=== PATIENT | male | born 1950 | race Caucasian/White ===

== ENCOUNTER 2019-11-25 06:52 | Day surgery (SDC) | payer MEDICARE, BC ==
[~2019-11-25 06:52] MED LIST: Lactated Ringers 1,000 ML IV SCH; Sodium Chloride 0.9% 10 ML SDV IV PRN; Sodium Chloride 0.9% 10 ML Syringe FLUSH PRN; Sodium Chloride 0.9% 2.5 ML Syringe FLUSH PRN
[2019-11-25] MEDS ORDERED: fentaNYL 100 MCG/2 ML SDV ONE (07:12)
[2019-11-25] MEDS ORDERED: Propofol 200 MG/20 ML SDV ONE ×2 (07:12→07:51)
[2019-11-25] MEDS ORDERED: Lidocaine 2% 5 ML SDV ONE (07:12)
--- NOTE | 2019-11-25 07:13 | PCM.PREANE ---
Preanesthetic Assessment - Anesthesia/Transfusion/Family Hx Anesthesia History: Prior Anesthesia Without Reaction Family History of Anesthesia Reaction: No Transfusion History: No Prior Transfusion(s) - Review of Systems General: No Symptoms Pulmonary: No Symptoms Cardiovascular: No Symptoms Neurological: No Symptoms Other: Reports: None - Physical Assessment NPO Status Date: 11/24/19 Vital Signs: Last Vital Signs Temp 96.4 F L 11/25/19 07:05 Pulse 55 L 11/25/19 07:05 Resp 15 11/25/19 07:05 BP 130/77 11/25/19 07:05 Pulse Ox 95 11/25/19 07:05 Height: 6 ft 2 in Weight: 130.635 kg ASA Class: 3 Mental Status: Alert & Oriented x3 Airway Class: Mallampati = 2 Dentition: Reports: Normal Dentition ROM/Head Extension: Full Lungs: Clear to Auscultation, Normal Respiratory Effort Cardiovascular: Regular Rate, Regular Rhythm - Allergies Allergies/Adverse Reactions: Allergies Allergy/AdvReac Type Severity Reaction Status Date / Time No Known Allergies Allergy Verified 11/19/19 11:06 - Acknowledgements Anesthesia Type Planned: General Anesthesia (tiva) Pt an Appropriate Candidate for the Planned Anesthesia: Yes Alternatives and Risks of Anesthesia Discussed w Pt/Guardian: Yes Pt/Guardian Understands and Agrees with Anesthesia Plan: Yes Additional Comments: pmh: cad with coronary stent in 2004, stopped aspirin yesterday, htn, gerd PreAnesthesia Questionnaire HEENT History: Reports: Hard of Hearing, Other (See Below) Other HEENT History: wears glasses, has bilateral hearing aides Cardiovascular History: Reports: CAD, High Cholesterol Respiratory History: Reports: None Gastrointestinal History: Reports: Other (See Below) Other Gastrointestinal History: occasional heartburn- no medications Genitourinary History: Reports: None Musculoskeletal History: Reports: Back Pain, Chronic, Fracture, Osteoarthritis Other Musculoskeletal History: hx of fx ankle, wrist, and leg Neurological History: Reports: Concussion Psychiatric History: Reports: Depression Endocrine/Metabolic History: Reports: Obesity/BMI 30+ Hematologic History: Reports: None Immunologic History: Reports: None Oncologic (Cancer) History: Reports: None Dermatologic History: Reports: None - Past Surgical History Head Surgeries/Procedures: Reports: None Cardiovascular Surgical History: Reports: Coronary Artery Stent Other Cardiovascular Surgeries/Procedures: Angioplasty with 1 stent placed (because of SOB) no symptoms since Endocrine Surgical History: Reports: Other (See Below) Other Endocrine Surgeries/Procedures: Partial Thyroidectomy- benign Musculoskeletal Surgical History: Reports: Arthroscopic Knee, ORIF, Shoulder Replacement Other Musculoskeletal Surgeries/Procedures:: hx of right TSA, ORIF right lower leg (has hardware), ORIF wrist and ankle (hardware removed) - SUBSTANCE USE Smoking Status *Q: Never Smoker Recreational Drug Use History: No - HOME MEDS Home Medications: Home Meds Ramipril 10 mg PO BID 12/25/15 [History] Rosuvastatin [Crestor] 10 mg PO DAILY 12/25/15 [History] carvediloL [Carvedilol] 6.25 mg PO QAM 12/25/15 [History] Aspirin [Adult Low Dose Aspirin EC] 81 mg PO DAILY 11/19/19 [History] Ezetimibe [Zetia] 10 mg PO DAILY 11/19/19 [History] buPROPion HCL [Bupropion Xl] 300 mg PO DAILY 11/19/19 [History] - CURRENT (IN HOUSE) MEDS Current Meds: Current Medications Lactated Ringer's (Ringers, Lactated) 1,000 mls @ 125 mls/hr IV ASDIRECTED SINCERE Sodium Chloride (Saline Flush) 10 ml FLUSH ASDIRECTED PRN PRN Reason: Keep Vein Open Sodium Chloride (Saline Flush) 2.5 ml FLUSH ASDIRECTED PRN PRN Reason: Keep Vein Open Sodium Chloride (Saline Flush) 10 ml FLUSH ASDIRECTED PRN PRN Reason: Keep Vein Open Sodium Chloride (Saline Flush) 2.5 ml FLUSH ASDIRECTED PRN PRN Reason: Keep Vein Open Sodium Chloride (Normal Saline) 10 ml IV ASDIRECTED PRN PRN Reason: IV Use
[2019-11-25] MEDS ORDERED: Glycopyrrolate 0.2 MG/ML SDV ONE (07:41)
--- NOTE | 2019-11-25 08:34 | PCM.POSTAN ---
POST ANESTHESIA ASSESSMENT - MENTAL STATUS Mental Status: Alert, Oriented - VITAL SIGNS Vital Signs: Last Vital Signs Temp 35.8 C L 11/25/19 07:05 Pulse 55 L 11/25/19 07:05 Resp 15 11/25/19 07:05 BP 130/77 11/25/19 07:05 Pulse Ox 95 11/25/19 07:05 - RESPIRATORY Respiratory Status: Respiratory Rate WNL, Airway Patent, O2 Saturation Stable - CARDIOVASCULAR CV Status: Pulse Rate WNL, Blood Pressure Stable - GASTROINTESTINAL GI Status: No Symptoms - POST OP HYDRATION Hydration Status: Adequate & Stable
--- NOTE | 2019-11-25 08:56 | PCM.OPNOTE ---
- General Post-Op/Procedure Note Date of Surgery/Procedure: 11/25/19 Operative Procedure(s): Colonoscopy with random biopsies Findings: scant diverticulosis. dictation number [id number] Pre Op Diagnosis: Increased loose stools Post-Op Diagnosis: scant diverticulosis Anesthesia Technique: Moderate Sedation Primary Surgeon: Edd Diggs Pathology: Random biopsies Complications: None Condition: Good Free Text/Narrative:: Intake & Output 11/24/19 11/25/19 11/25/19 22:59 06:59 14:59 Intake Total 750 Balance 750
--- NOTE | 2019-11-25 09:18 | PCM48HPAN ---
Post Anesthesia Note - EVALUATION WITHIN 48HRS OF ANESTHETIC Vital Signs in Normal Range: Yes Patient Participated in Evaluation: Yes Respiratory Function Stable: Yes Airway Patent: Yes Cardiovascular Function Stable: Yes Hydration Status Stable: Yes Pain Control Satisfactory: Yes Nausea and Vomiting Control Satisfactory: Yes Mental Status Recovered: Yes Vital Signs: Last Vital Signs Temp 96.4 F L 11/25/19 07:05 Pulse 64 11/25/19 08:35 Resp 15 11/25/19 08:35 BP 122/76 11/25/19 08:35 Pulse Ox 93 L 11/25/19 08:35
[2019-11-25 09:28] VITALS: BP 144/73; PULSE 56
--- NOTE | 2019-11-25 10:12 | PCM48HPAN ---
Post Anesthesia Note - EVALUATION WITHIN 48HRS OF ANESTHETIC Vital Signs in Normal Range: Yes Patient Participated in Evaluation: Yes Respiratory Function Stable: Yes Airway Patent: Yes Cardiovascular Function Stable: Yes Hydration Status Stable: Yes Pain Control Satisfactory: Yes Nausea and Vomiting Control Satisfactory: Yes Mental Status Recovered: Yes Vital Signs: Last Vital Signs Temp 96.4 F L 11/25/19 07:05 Pulse 56 L 11/25/19 08:40 Resp 15 11/25/19 08:40 BP 144/73 H 11/25/19 08:40 Pulse Ox 96 11/25/19 08:40
--- NOTE | 2019-11-25 15:01 | OR ---
SURGEON: SANDRA ABEL MD DATE OF PROCEDURE: 11/25/2019 PREOPERATIVE DIAGNOSIS: Increasing loose stool. POSTOPERATIVE DIAGNOSIS: Scant diverticulosis. PROCEDURE PERFORMED: Colonoscopy with random biopsies. PRIMARY SURGEON: Sandra Abel MD ANESTHESIA: General. EXTENT OF COLONOSCOPY: To the cecum. WITHDRAWAL TIME: 16 minutes. LIMITATIONS: None. BOWEL PREP: Very Good. REASON FOR PROCEDURE: The patient is a pleasant 69-year-old gentleman who is having increasing loose stools along with a lot of flatus. The patient reports he is having more flatus, but he cannot tell whether he is having a bowel movement or flatus. It is affecting his quality of life since he is a ambrocio. I did go over with the patient we will do a colonoscopy. I went over that we may not find a cause of this increased flatus and loose stools. The patient understands. PROCEDURE IN DETAIL: Physical examination was performed. The major risks and benefits associated with the procedure were explained to the patient in detail. The patient verbalized understanding of the same. The patient was then connected to appropriate monitoring devices. EKG, pulse, pulse oximetry, blood pressure, and capnography were monitoring throughout the procedure. Continuous oxygen and sedation were provided by the anesthesiologist. The patient was placed in left lateral decubitus position. Sedation was began. After adequate sedation was achieved, a digital rectal exam was performed. No rectal masses or polyps were felt. Now, a well-lubricated Olympus colonoscope was entered in the rectum and advanced under direct visualization to the level of the cecum. Cecum was identified by both visual and anatomic landmarks. Photograph was taken of the cecal cap. Scope was then slowly withdrawn in somewhat circular fashion looking at the color, texture, anatomy, and integrity of the mucosa from the cecum to the anal canal. The patient had an okay bowel prep. Still quite a bit of liquid stool left, but with some suction and irrigation, actually got a very good look at the mucosa. I did do random biopsies throughout the colon to check for any microscopic colitis. The patient had very scant diverticulosis in the sigmoid colon. In the rectum, the mucosa looked slightly more irritated. This could be because of the prep, but I did send these random biopsies in a separate container. Scope was retroflexed in the rectum. Scope was then completely removed, and the procedure was terminated. ENDOSCOPIC DIAGNOSIS: Scant diverticulosis. RECOMMENDATIONS: Followup colonoscopy will depend on pathology, but most likely another one in 10 years. He will need one sooner if he develops signs or symptoms such as blood in the stool, or changing bowel habits. The patient should follow up in my clinic to discuss his pathology results. MIKAEL SANTANA /[id number] MTDD
== END 2019-11-25 09:20 | disposition home or self-care (01) ==
LOC: MW.SDS 06:52
PROVIDERS: ATTEND Surgery
DX: K57.30 Diverticulosis of large intestine without perforation or abscess without bleeding (principal); E78.00 Pure hypercholesterolemia, unspecified; E66.9 Obesity, unspecified; I25.10 Atherosclerotic heart disease of native coronary artery without angina pectoris; F32.9 Major depressive disorder, single episode, unspecified; I10 Essential (primary) hypertension; E78.5 Hyperlipidemia, unspecified; Z79.82 Long term (current) use of aspirin; Z79.899 Other long term (current) drug therapy; Z68.36 Body mass index [BMI] 36.0-36.9, adult
CPT/HCPCS: 45380; 88305; J2001; J2704; J3010; J3490; J7120; 00811

== ENCOUNTER 2022-02-22 09:07 | Day surgery (SDC) | payer MEDICARE, BC ==
[~2022-02-22 09:07] MED LIST changes: +Acetaminophen 1,000 MG in Premix Bag 1 BAG IV SCH; +Pregabalin 75 MG Cap PO SCH; -Sodium Chloride 0.9% 10 ML SDV IV PRN; -Sodium Chloride 0.9% 10 ML Syringe FLUSH PRN; -Sodium Chloride 0.9% 2.5 ML Syringe FLUSH PRN; +ceFAZolin 2 GM in Premix Bag 1 BAG IV SCH
[2022-02-22] MEDS ORDERED: Rocuronium Bromide 50 MG/5 ML Syringe ONE ×2 (09:20→11:33)
[2022-02-22] MEDS ORDERED: Lidocaine 2% 5 ML SDV ONE (09:20)
[2022-02-22] MEDS ORDERED: Ondansetron 4 MG/2 ML SDV ONE (09:20)
[2022-02-22] MEDS ORDERED: fentaNYL 100 MCG/2 ML SDV ONE ×2 (09:20→13:09)
[2022-02-22] MEDS ORDERED: Dexamethasone 4 MG/ML 5 ML MDV ONE (09:20)
[2022-02-22] MEDS ORDERED: Propofol 200 MG/20 ML SDV ONE ×2 (09:20→13:10)
[2022-02-22] MEDS ORDERED: Sugammadex Sodium 200 MG/2 ML VIAL ONE ×2 (09:20→12:57)
[2022-02-22] MEDS ORDERED: Ondansetron 4 MG/2 ML SDV IVPUSH PRN (09:22)
[2022-02-22] MEDS ORDERED: Albuterol 0.083% 2.5 MG/3 ML Neb Soln NEB PRN (09:22)
[2022-02-22] MEDS ORDERED: Metoclopramide 10 MG/2 ML SDV IVPUSH PRN (09:22)
[2022-02-22] MEDS ORDERED: Naloxone 0.4 MG/ML SDV IVPUSH PRN (09:22)
[2022-02-22] MEDS ORDERED: fentaNYL 50 MCG/ML SDV IVPUSH PRN (09:22)
[2022-02-22] MEDS ORDERED: Morphine 2 MG/ML SYRINGE IVPUSH PRN (09:22)
[2022-02-22] MEDS ORDERED: HYDROmorphone 1 MG/ML Syringe IVPUSH PRN (09:22)
[2022-02-22] MEDS ORDERED: Ropivacaine 0.5% 5 MG/ML 30 ML SDV ONE ×2 (09:59→10:11)
[2022-02-22] MEDS ORDERED: Bupivacaine 0.5% 30 ML SDV ONE (10:17)
[2022-02-22] MEDS ORDERED: Water For Injection, Sterile 20 ML ONE (10:57)
[2022-02-22] MEDS ORDERED: ceFAZolin 2 GM Vial ONE (10:57)
[2022-02-22] MEDS ORDERED: ceFAZolin 1 GM Vial ONE (10:57)
[2022-02-22 15:16] VITALS: PULSE 56
[2022-02-22 15:49] VITALS: BP 119/72
== END 2022-02-22 16:25 | disposition home or self-care (01) ==
LOC: MW.SDS 09:07
PROVIDERS: ATTEND Surgery
DX: K40.91 Unilateral inguinal hernia, without obstruction or gangrene, recurrent (principal); K43.9 Ventral hernia without obstruction or gangrene; D17.79 Benign lipomatous neoplasm of other sites; I25.10 Atherosclerotic heart disease of native coronary artery without angina pectoris; M17.12 Unilateral primary osteoarthritis, left knee; F32.A Depression, unspecified; I10 Essential (primary) hypertension; E78.5 Hyperlipidemia, unspecified; N40.0 Benign prostatic hyperplasia without lower urinary tract symptoms; E66.9 Obesity, unspecified; Z68.30 Body mass index [BMI] 30.0-30.9, adult; Z79.899 Other long term (current) drug therapy; Z95.818 Presence of other cardiac implants and grafts
CPT/HCPCS: 49560; 49651; A9270; J0131; J0690; J1100; J2704; J2795; J3010; J3490; J7120; J2405